=== PATIENT | male | born 2000 | race Two or more races ===

== ENCOUNTER 2022-02-13 22:38 | Emergency (ER) | payer SELFPAY ==
[~2022-02-13] VITALS: Ht 177.8 cm; Wt 79.8 kg
[2022-02-14] MEDS ORDERED: AMOX500T86 PO (00:58)
[2022-02-14 01:00] VITALS: BP 121/64
== END 2022-02-14 01:06 | disposition home or self-care (01) ==
LOC: ER 22:42
DX: S51.852A Open bite of left forearm, initial encounter (principal); S61.253A Open bite of left middle finger without damage to nail, initial encounter; W54.0XXA Bitten by dog, initial encounter; Y93.89 Activity, other specified; Y92.89 Other specified places as the place of occurrence of the external cause; Y99.8 Other external cause status